=== PATIENT | female | born 1970 | race Caucasian/White ===

== ENCOUNTER → 2017-03-10 06:29 | Day surgery (SDC) | payer BC ==
[2017-03-09 15:39] LABS: HEMATOCRIT 41.8 % (36.0-48.0); HEMOGLOBIN 13.9 g/dL (12-16); MCHC 33.3 g/dL (31.0-37.0); MCV 90.3 fL (80.0-100.0); MEAN PLATELET VOLUME 10.5 fL (7.4-10.4); RBC 4.63 10x6/uL (4.00-5.40); RDW 14.3 % (11.5-14.5); WBC 9.3 10x3/uL (4.8-10.8)
[~2017-03-10] VITALS: Ht 170.2 cm; Wt 74.8 kg
[~2017-03-10 06:29] MED LIST: ACETAMINOPHEN; CAFFEI; IMITREX; QUASENSE1 BLIST PA PO
[2017-03-10 10:33] VITALS: BP 130/85; Ht 170.2 cm; Wt 74.8 kg
[2017-03-10 11:01] LABS: HCG URINE NEGATIVE (NEGATIVE)
--- NOTE | 2017-03-10 15:52 | NUR ---
1345 PT ESCORTED OUT BY VOLUNTEER AND ACCOMPANIED BY HER .
== END | disposition home or self-care (01) ==
LOC: D.OPS 06:29 → D.PAN 12:30
PROVIDERS: Anesthesiology; Podiatrist
DX: M20.12 Hallux valgus (acquired), left foot (principal); Z01.812 Encounter for preprocedural laboratory examination

== ENCOUNTER 2018-02-16 06:34 | Day surgery (SDC) | payer BC ==
[~2018-02-16] VITALS: Ht 170.2 cm; Wt 81.2 kg
--- NOTE | ~2018-02-16 | OP ---
PATIENT NAME: SIS HALL MEDICAL RECORD: [id number] :68 LOCATION:[facility] ADMISSION DATE: SURGEON: MARY SORIA DPM DATE OF OPERATION: 02/16/2018 PREOPERATIVE DIAGNOSIS: Hallux abducto valgus, right foot. POSTOPERATIVE DIAGNOSIS: Hallux abducto valgus, right foot. PROCEDURES: Channing bunionectomy, right foot. ANESTHESIA: General with local infiltrate utilizing 16 cc of lidocaine with Marcaine around the first ray of the right foot. HEMOSTASIS: Right ankle tourniquet at 250 mmHg. PREOPERATIVE DETAILS: The patient was taken to the OR and placed on the operating table in supine position followed by induction of general anesthesia and infiltration of local anesthetic. The right extremity was then prepped and draped in usual aseptic technique followed by exsanguination and inflation of tourniquet. A 15 blade was used to create a 4-cm linear incision over the dorsal aspect of the first metatarsal extending to the base of proximal phalanx of the hallux. The incision deepened down through subcutaneous tissue being sure to avoid all vital structures. Dissection was carried down to the first MPJ where an inverted L capsulotomy was performed. The medial capsular flap was reflected and the head of the first metatarsal was delivered. A sagittal saw was used to resect the medial eminence. Attention was then directed to the first interspace where a lateral release was performed. Good clinical reduction of lateral contracture was verified. Attention then redirected to the medial aspect of the head of first metatarsal where a sagittal saw was used to do a V-osteotomy through and through. The capital fragment was translocated laterally and fixated with a 0.062 inch K-wire. The pin was cut. The medial redundant shelf was resected with a sagittal saw. The wound was flushed. Excellent alignment was noted. The capsule was then repaired with 2-0 Vicryl, the subcutaneous tissue with 4-0 Rapide and the skin was closed with 4-0 Rapide in a subcuticular technique followed by Dermabond. Adaptic, 4 x 4 and Conform were used to dress the wound followed by Coban. Tourniquet was deflated. POSTOPERATIVE DETAILS: The patient tolerated the procedure well and left the OR with vital signs stable and vascular status at preop levels. The patient was transferred to recovery per anesthesia in stable condition. TRANSINT:[id number] Voice Confirmation ID: [id number] DOCUMENT ID: [id number] MARY SORIA DPM at 0920 CC: [id number] DICTATION DATE: 02/16/18 1129 BUTT SAWYER: 02/16/18 1156 [facility] 02/16/18 [place] [id number] [place] [id number]
[~2018-02-16 06:34] MED LIST changes: -IMITREX; +IMITREX PO
[2018-02-16 06:51] LABS: HEMOGLOBIN 14.2 g/dL (12-16); MCH 29.8 pg (26.0-34.0); MCHC 33.8 g/dL (31.0-37.0); MCV 88.1 fL (80.0-100.0); MEAN PLATELET VOLUME 10.3 fL (7.4-10.4); RBC 4.77 10x6/uL (4.00-5.40); RDW 13.9 % (11.5-14.5); WBC 8.9 10x3/uL (4.8-10.8)
[2018-02-16] MEDS ORDERED: PROPRANOLOL HCL20 MG PO (08:02)
[2018-02-16] MEDS ORDERED: ELAVIL25 MG PO (08:02)
[2018-02-16 08:08] VITALS: BP 139/87; Ht 170.2 cm; Wt 81.2 kg
[2018-02-16 08:34] LABS: HCG URINE NEGATIVE (NEGATIVE)
== END 2018-02-16 13:11 | disposition home or self-care (01) ==
LOC: D.OPS 06:34 → D.PAN 07:40 → D.OPS 09:00 → D.PAN 09:35 → D.OPS 09:35
PROVIDERS: Anesthesiology; Podiatrist
DX: M20.11 Hallux valgus (acquired), right foot (principal); Z01.812 Encounter for preprocedural laboratory examination

== ENCOUNTER 2018-07-15 12:28 | Emergency (ER) | payer BC ==
[2018-02-16 08:08] VITALS: BMI 28.1
[~2018-07-15 12:28] MED LIST changes: +ELAVIL25 MG PO; +PROPRANOLOL HCL20 MG PO
== END 2018-07-15 12:37 | disposition left against medical advice (07) ==
LOC: D.ER 12:28
DX: M79.673 Pain in unspecified foot (principal)

== ENCOUNTER 2018-07-19 08:10 | Day surgery (SDC) | payer BC ==
[~2018-07-19] VITALS: Ht 170.2 cm; Wt 76.2 kg
--- NOTE | ~2018-07-19 | OP ---
PATIENT NAME: SIS HALL MEDICAL RECORD: [id number] :68 LOCATION:[facility] ADMISSION DATE: SURGEON: FARRUKH ROOT DO DATE OF OPERATION: 07/19/2018 PROCEDURE PERFORMED: Right first metatarsal removal of hardware of the right foot first metatarsal. PREOPERATIVE DIAGNOSIS: Retained hardware of the right foot first metatarsal. POSTOPERATIVE DIAGNOSIS: Retained hardware of the right foot first metatarsal. INDICATIONS: Ms. Hall is a 48-year-old female, who had a foot procedure done some time ago. She had a retained pin in it, K-wire. It is normally pulled out by the surgeon who performed at the office, however, when he attempted, it went back into the bone. They were doing it under local and she did not tolerate taken for it. He was leaving town and asked if I would remove it in the OR, I told him I would. She is aware of the risks and benefits including damage to the nerve in that area, bleeding, need for further surgery, and fracture, and she consented to the procedure. SURGEON: Farrukh Root DO DESCRIPTION OF PROCEDURE: The patient was taken to the operating suite, given 2 grams of Ancef preoperatively. The right foot was prepped and draped in sterile fashion. A time-out was performed. Everyone was in agreement with correct site, side, and patient. The incision was then made over the old prior incision and an x-ray was taken to ensure that we were over the pin site. Dissection was made down to the pin site. It was somewhat difficult to remove it; however, once the pin levered out with a freer enough to grab with a hemostat and a needle crew truck driver, grabbed and pulled it out and then an x-ray was taken to confirm it was removed. The site was then irrigated and injected with 5 mL of 0.5% Marcaine with epinephrine and 4-0 Monocryl was used and 2 inverted interrupted stitches were placed in the site. Steri-Strips were placed on that. Adaptic, 4 x 4, Webril, and Mehrdad wrap were then wrapped on the foot. The patient was awakened and taken to recovery in stable condition. BLOOD LOSS: Minimal. COMPLICATIONS: None. TRANSINT:[id number] Voice Confirmation ID: [id number] DOCUMENT ID: [id number] FARRUKH ROOT, at 1811 CC: [id number] DICTATION DATE: 07/19/18 1226 FLEET TECHNICIAN: 07/19/18 1324 [facility] 07/19/18 [place] [address] [place] [address]
[2018-07-19 08:32] LABS: HEMATOCRIT 45.3 % (36.0-48.0); HEMOGLOBIN 15.1 g/dL (12-16); MCH 29.9 pg (26.0-34.0); MCHC 33.3 g/dL (31.0-37.0); MCV 89.7 fL (80.0-100.0); MEAN PLATELET VOLUME 10.9 fL (7.4-10.4); RBC 5.05 10x6/uL (4.00-5.40); RDW 14.1 % (11.5-14.5); WBC 7.1 10x3/uL (4.8-10.8)
[2018-07-19 09:00] VITALS: BP 117/73; Ht 170.2 cm; Wt 76.2 kg
[2018-07-19] MEDS ORDERED: HYDROCODON-ACE1 EAC7 PO (11:55)
== END 2018-07-19 14:14 | disposition home or self-care (01) ==
LOC: D.OPS 08:10 → D.PAN 10:45 → D.OPS 10:45
PROVIDERS: Anesthesiology
DX: T84.098A Other mechanical complication of other internal joint prosthesis, initial encounter (principal); Y83.8 Other surgical procedures as the cause of abnormal reaction of the patient, or of later complication, without mention of misadventure at the time of the procedure

== ENCOUNTER 2020-05-07 08:45 | Outpatient (CLI) | payer BC ==
[2018-07-19 09:00] VITALS: BMI 26.3
[~2020-05-07 08:45] MED LIST changes: +HYDROCODON-ACE1 EAC7 PO
== END 2020-05-07 13:00 | disposition home or self-care (01) ==
LOC: D.MAMMO 08:45
PROVIDERS: ATTEND Family Medicine
DX: Z12.31 Encounter for screening mammogram for malignant neoplasm of breast (principal)

== ENCOUNTER → 2020-05-13 12:42 | Outpatient (CLI) | payer BC ==
[2018-07-19 09:00] VITALS: BMI 26.3
== END | disposition home or self-care (01) ==
LOC: D.US 12:42
PROVIDERS: ATTEND Obstetrics & Gynecology
DX: R92.8 Other abnormal and inconclusive findings on diagnostic imaging of breast (principal)

== ENCOUNTER → 2020-06-11 19:23 | Outpatient (CLI) | payer BC ==
[2018-07-19 09:00] VITALS: BMI 26.3
[~2020-06-11 19:23] MED LIST changes: +PROVERA10 MG PO
== END | disposition home or self-care (01) ==
LOC: D.LABREF 19:23
PROVIDERS: ATTEND Obstetrics & Gynecology
DX: Z11.59 Encounter for screening for other viral diseases (principal)

== ENCOUNTER 2020-06-13 05:27 | Day surgery (SDC) | payer BC ==
[~2020-06-13] VITALS: Ht 170.2 cm; Wt 86.2 kg
--- NOTE | ~2020-06-13 | OP ---
PATIENT NAME: SIS HALL MEDICAL RECORD: [id number] :68 LOCATION:D[facility] ADMISSION DATE: SURGEON: VIVEK PETERS DO DATE OF OPERATION: 06/13/2020 PREOPERATIVE DIAGNOSIS: Menorrhagia. POSTOPERATIVE DIAGNOSIS: Menorrhagia. PRIMARY SURGEON: Vivek Peters DO HUMAN RESOURCES EXECUTIVE ASSISTANT SURGEON: None. ANESTHESIA: LMA. PROCEDURE: Hysteroscopy, D&C and NovaSure ablation. FINDINGS: Polypoid tissue in uterus on hysteroscopy and NovaSure ablation, length of 6.5 cm, width of 2.6 cm. Time 1.19 and power of 93 espinosa. SPECIMEN: Endometrial curetting. ESTIMATED BLOOD LOSS: Less than 20 cc. IV FLUIDS: Per anesthesia. INFECTION PROPHYLAXIS: Vaginal Betadine prep. DEEP VEIN THROMBSIS PROPHYLAXIS: SCDs in place. COMPLICATIONS: None. Risks and benefits were reviewed with the patient. The patient expressed understanding and signed consents prior to the procedure and all questions answered. DESCRIPTION OF PROCEDURE: The patient was taken to the operating room where LMA was placed without issue. The patient was placed in the dorsal lithotomy position with Olaf stirrups and prepped and draped in normal sterile fashion. Bimanual exam revealed anteverted uterus. A bivalve speculum was placed in the vagina. Anterior lip of the cervix was grasped with single-tooth tenaculum. A sound was used to measure the length of the uterus and cervix, which was found to be 8 cm. Next, Hegar dilators were used to dilate the cervical os. Uterus was sounded to 9.5 cm and cervix was about 2 cm, making total length 8 cm. Cervix was dilated to 5-mm diagnostic. Hysteroscope was introduced into the uterine cavity. Uterine cavity was distended with normal saline. The cavity was examined to be normal shape. Both ostia were visualized. Polypoid tissue noted especially in the posterior aspect. The scope was removed. The cervix was dilated to 8-mm, curette was introduced and gentle thorough curettage was performed and sample sent to pathology. The NovaSure device was then opened and tested. The fan deployed easily. The instrument was set to the correct cavity length and introduced into the uterine cavity. The fan was slowly deployed with gentle movement to ensure a snug fit within the cavity, the cavity width read 2.6 cm. The measurements were imported and a cavity check was done. The trumpet was then slid down to the cervix and the device was activated. The OPERATIVE REPORT [id number] ISABELSIS total burn time was 1 minute and 19 seconds, and power was 93 espinosa. The fan was retracted and the device removed. The fan was then examined and revealed charred tissue. The tenaculum was removed and the cervix was examined for hemostasis. Bleeding noted from the tenaculum sites with silver nitrate applied and some bleeding still noted. Pressure applied, after which hemostasis was then adequate. The speculum was removed. All lap and instrument counts were correct times 2. The patient tolerated the procedure well and was awakened and brought to recovery room in stable condition. TRANSINT:[id number] Voice Confirmation ID: [id number] DOCUMENT ID: [id number] VIVEK PETERS DO CC: [id number] DICTATION DATE: 06/13/20 1001 PRIMARY CARE SALES REPRESENTATIVE: 06/13/20 1259 [facility] 06/13/20 [facility] [address] [place] [address]
[2020-06-13 07:07] VITALS: BP 139/84; Ht 170.2 cm; Wt 86.2 kg
[2020-06-13 07:12] LABS: HCG URINE NEGATIVE (NEGATIVE)
--- NOTE | 2020-06-13 13:13 | NUR ---
1050 IV D/C'D WITH CANNULA INTACT, PPRESSURE HELD AND DRSG PLACED. DISCHARGE INSTRUCTIONS GIVEN AND PT VERBALIZED AN UNDERSTANDING. DISCHARGED HOME IN STABLE CONDITION AND WITHOUT C/O
== END 2020-06-13 11:00 | disposition home or self-care (01) ==
LOC: D.OPS 05:27
PROVIDERS: ATTEND Obstetrics & Gynecology
DX: N92.0 Excessive and frequent menstruation with regular cycle (principal); N93.9 Abnormal uterine and vaginal bleeding, unspecified; N83.202 Unspecified ovarian cyst, left side; Z11.59 Encounter for screening for other viral diseases

== ENCOUNTER 2020-11-11 09:00 | Outpatient (CLI) | payer BC ==
[2020-06-13 07:07] VITALS: BMI 29.8
== END 2020-11-11 23:59 | disposition home or self-care (01) ==
LOC: D.MAMMO 09:00
PROVIDERS: ATTEND Family Medicine
DX: R92.8 Other abnormal and inconclusive findings on diagnostic imaging of breast (principal)